=== PATIENT | male | born 1960 | race Caucasian/White ===

== ENCOUNTER → 2021-03-15 | Day surgery (SDC) | payer OTHER ==
[~2021-03-15] VITALS: Ht 180.3 cm; Wt 99.8 kg
[~2021-03-15] MED LIST: DAILY VALUE1 EACH PO
[2021-03-15 07:35] LABS: HCT 47.4 % (42.0-52.0); HGB 16.2 g/dl (13.2-18.0); MCHC 34.2 g/dL (32.0-36.0); MCV 87.8 fL (78.0-100.0); MPV 9.8 fL (6.0-9.5); RBC 5.4 M/uL (4.70-6.00); RDW 12.4 % (11.5-14.0); WBC 8.7 K/uL (4.0-10.5)
[2021-03-15 07:54] LABS: ALBUMIN 4.3 g/dL (3.4-5.0); BILIRUBIN - TOTAL 1.3 mg/dL (0.2-1.0); BUN/CREAT RATIO (CALC) 17.7 RATIO; CREATININE 0.96 mg/dL (0.67-1.17); GLOBULIN (CALCULATION) 4.1 g/dL; POTASSIUM 4.1 mmol/L (3.5-5.1); TOTAL PROTEIN 8.4 g/dL (6.4-8.2)
== END | disposition home or self-care (01) ==
LOC: FAS 07:06
PROVIDERS: Surgery
DX: Z12.11 Encounter for screening for malignant neoplasm of colon (principal); Z88.0 Allergy status to penicillin
CPT/HCPCS: 36415; 80053; J2704; J7120

== ENCOUNTER → 2021-04-23 | Day surgery (SDC) | payer OTHER ==
[~2021-04-23] VITALS: Ht 180.3 cm; Wt 99.8 kg
[~2021-04-23] MED LIST changes: +NORCO 5-325 TA1 EACH PO; +ONDANSETRON ODT8 MG PO
[2021-04-23 08:16] LABS: HCT 45.1 % (42.0-52.0); HGB 15.9 g/dl (13.2-18.0); MCH 30.5 pg (25.0-31.0); MCHC 35.3 g/dL (32.0-36.0); MCV 86.6 fL (78.0-100.0); MPV 9.8 fL (6.0-9.5); RBC 5.21 M/uL (4.70-6.00); RDW 12.3 % (11.5-14.0); WBC 8.2 K/uL (4.0-10.5)
[2021-04-23 08:33] LABS: ALBUMIN 4.2 g/dL (3.4-5.0); BILIRUBIN - TOTAL 1.1 mg/dL (0.2-1.0); BUN/CREAT RATIO (CALC) 19.4 RATIO; CREATININE 0.93 mg/dL (0.67-1.17); GLOBULIN (CALCULATION) 3.9 g/dL; POTASSIUM 4.3 mmol/L (3.5-5.1); TOTAL PROTEIN 8.1 g/dL (6.4-8.2)
== END | disposition home or self-care (01) ==
LOC: FAS 07:49
PROVIDERS: Surgery
DX: K42.0 Umbilical hernia with obstruction, without gangrene (principal); Z88.0 Allergy status to penicillin
CPT/HCPCS: 36415; 80053; J1885; J2250; J2405; J2704; J3010; J7120